=== PATIENT | male | born 1955 | race Caucasian/White ===

== ENCOUNTER 2023-02-28 11:22 | Day surgery (SDC) | payer OTHER ==
[~2023-02-28] VITALS: Ht 182.9 cm; Wt 87.4 kg
[~2023-02-28 11:22] MED LIST: ATEN25; CYCL10 PO; ENBREL25 MG/0.2; FISH1000; HYDSUL200 PO; METF500 PO; OXYC5; Propecia1 MG PO; TRAZ50 PO
--- NOTE | 2023-02-28 12:02 | NUR ---
02/28/23 1202 Thea Pires AT 1155 PLEDGET AT 1157
[2023-02-28] MEDS ORDERED: OXYC10TA19 PO (12:12)
--- NOTE | 2023-02-28 13:41 | NUR ---
02/28/23 1341 RAFA HEWITT PT TO BATHROOM PRIOR TO HIS DC
== END 2023-02-28 13:41 | disposition home or self-care (01) ==
LOC: ORSCSDS 11:22
PROVIDERS: Ophthalmology
PROC: 08DJ3ZZ Extraction of Right Lens, Percutaneous Approach (ICD-10-PCS; principal; 2023-02-28 12:30)
DX: H25.11 Age-related nuclear cataract, right eye (principal); I10 Essential (primary) hypertension; I25.2 Old myocardial infarction; I48.91 Unspecified atrial fibrillation; F17.210 Nicotine dependence, cigarettes, uncomplicated; Z79.02 Long term (current) use of antithrombotics/antiplatelets; Z79.84 Long term (current) use of oral hypoglycemic drugs; Z79.899 Other long term (current) drug therapy
CPT/HCPCS: J2001; J2250; J3010; J3301; J7040; V2632

== ENCOUNTER 2023-03-07 10:18 | Day surgery (SDC) | payer OTHER ==
[~2023-03-07] VITALS: Ht 182.9 cm; Wt 87.7 kg
[~2023-03-07 10:18] MED LIST changes: +OXYC10TA19 PO
--- NOTE | 2023-03-07 10:46 | NUR ---
03/07/23 1046 Sherry Birch 1036 TETRACAINE TO LEFT EYE 1038 PLEDGET TO LEFT EYE BY [email or web address]
[2023-03-07 12:35] VITALS: BP 143/108
--- NOTE | 2023-03-07 12:36 | NUR ---
03/07/23 1236 Augusto Ortiz PT ADVISED TO MONITOR BLOOD PRESSURE AT HOME AND FOLLOW UP WITH PCP REGARDING HYPERTENSION.
== END 2023-03-07 12:10 | disposition home or self-care (01) ==
LOC: ORSCSDS 10:18
PROVIDERS: Ophthalmology
PROC: 08DK3ZZ Extraction of Left Lens, Percutaneous Approach (ICD-10-PCS; principal; 2023-03-07 11:30)
DX: E11.36 Type 2 diabetes mellitus with diabetic cataract (principal); H25.12 Age-related nuclear cataract, left eye; Z96.1 Presence of intraocular lens; H04.123 Dry eye syndrome of bilateral lacrimal glands; I10 Essential (primary) hypertension; I25.2 Old myocardial infarction; F17.210 Nicotine dependence, cigarettes, uncomplicated; Z79.84 Long term (current) use of oral hypoglycemic drugs; Z79.899 Other long term (current) drug therapy
CPT/HCPCS: J2001; J2250; J3010; J3301; J7040; V2632

== ENCOUNTER → 2023-08-01 | Outpatient (CLI) | payer OTHER ==
[2023-08-01 16:53] LABS: BASOPHILS ABSOLUTE AUTO 0.09 K/mm3 (0.00-0.23); BASOPHILS PERCENT AUTO 1 % (0-2); EOSINOPHILS ABSOLUTE AUTO 0.54 K/mm3 (0.00-0.68); EOSINOPHILS PERCENT AUTO 8 % (0-6); Hematocrit 42.6 % (37.0-53.0); Hemoglobin 13.6 g/dL (13.5-17.5); IMMATURE GRAN ABSOLUTE AUTO 0.01 K/mm3 (0.00-0.10); IMMATURE GRAN PERCENT AUTO 0 % (0-1); LYMPHOCYTES ABSOLUTE AUTO 1.19 K/mm3 (0.84-5.20); LYMPHOCYTES PERCENT AUTO 17 % (21-46); MONOCYTES ABSOLUTE AUTO 0.62 K/mm3 (0.16-1.47); MONOCYTES PERCENT AUTO 9 % (4-13); Mean Corpuscular HGB 30.5 pg (26.0-34.0); Mean Corpuscular HGB Conc 31.9 g/dL (31.5-36.5); Mean Corpuscular Volume 96 fL (80-100); Mean Platelet Volume 10.4 fL (9.1-12.4); NEUTROPHILS ABSOLUTE AUTO 4.66 K/mm3 (1.96-9.15); NEUTROPHILS PERCENT AUTO 66 % (41-73); Platelet Count 251 K/mm3 (150-400); RDW Coefficient Variation 14.4 % (11.7-14.2); RDW Standard Deviation 50.7 fL (35.1-46.3); Red Blood Cell Count 4.46 M/mm3 (4.30-5.90); White Blood Cell Count 7.11 K/mm3 (4.00-11.30)
[2023-08-01 18:02] LABS: C-REACTIVE PROTEIN, EXT RANGE 0.308 mg/dL (0.000-0.300)
[2023-08-01 18:05] LABS: Albumin, Blood 3.6 g/dL (3.4-5.0); Bilirubin, Total 0.6 mg/dL (0.1-1.0); Bun/Creatinine Ratio 16.1 (12.0-20.0); Calcium, Blood 9.5 mg/dL (8.5-10.1); Creatinine, Blood 0.93 mg/dL (0.60-1.20); Globulin, Blood 3.6 g/dL (2.2-4.0); Potassium, Blood 4.7 mmol/L (3.5-5.5); Total Protein, Blood 7.2 g/dL (6.4-8.2)
== END | disposition home or self-care (01) ==
LOC: LAB 09:49 → LAB SHORT 09:49
PROVIDERS: Internal Medicine Rheumatology
DX: M06.9 Rheumatoid arthritis, unspecified (principal); I73.9 Peripheral vascular disease, unspecified
CPT/HCPCS: 80053; 85025; 85651; 86140

== ENCOUNTER 2024-08-27 07:11 | Day surgery (SDC) | payer OTHER ==
[~2024-08-27] VITALS: Ht 182.9 cm; Wt 84.5 kg
[~2024-08-27 07:11] MED LIST changes: +ACET325 PO; +ACYC400 PO; +BUPRENORPHINE HC2 MG; +CALCIPOTRIENE60 G3 TOP; +CILO100 PO; +CLOBETTC TOP; +CLOP75 PO; +CeFAZolin Sodium 2,000 MG in NS 100 ML IV SCH; +FURO40 PO; +GABA300 PO; +HYDCOR2.5C PR; +LIDO700A20 TOP; +Lactated Ringer's 1,000 ML IV SCH; +NARCAN4 M1; +NITR.4SL SL; +OXAYDO5 M1 PO; +TAMS.4ER PO; +Ventolin5 MG/1 ML INH; +XARELTO20 MG PO
[2024-08-27 07:34] VITALS: BP 169/99
[2024-08-27] MEDS ORDERED: Bupivacaine 0.5% Inj 50 ML Vial ONE (07:41)
--- NOTE | 2024-08-27 08:02 | NUR ---
Ambulatory in Day Surgery History, Chart, Medications and Allergies reviewed before start of procedure. Pre-Op teaching done. Pt verbalizes understanding. Patient States Post-Procedure ride home has been arranged.
[2024-08-27] MEDS ORDERED: Lidocaine HCl 1% 30 ML SDV ONE (08:09)
--- NOTE | 2024-08-27 08:18 | NUR ---
08/27/24 0818 Patrick Guillermo CASE DONE W/ LOCAL ANESTHESIA ONLY. VS MONITORED PER JULIA LION RN
[2024-08-27 09:30] VITALS: BP 139/108
--- NOTE | 2024-08-27 09:47 | NUR ---
Patient up to Ambulate independently. Gait steady. Discharge instructions reviewed with patient. Patient verbalizes understanding. Copy given to patient to take home. Patient States Post-Procedure ride home has been arranged. PT LOCAL ONLY, REPORTED WANTING TO WALK OUT. PT REPORTS READY TO GO HOME.
== END 2024-08-27 09:47 | disposition home or self-care (01) ==
LOC: ORSCMMR 07:11 → ORD 08:00 → ORSCMMR 08:00
PROVIDERS: Surgery
PROC: 0JBD0ZX Excision of Right Upper Arm Subcutaneous Tissue and Fascia, Open Approach, Diagnostic (ICD-10-PCS; principal; 2024-08-27 08:00)
PROC: 0JB70ZX Excision of Back Subcutaneous Tissue and Fascia, Open Approach, Diagnostic (ICD-10-PCS; principal; 2024-08-27 08:00)
PROC: 0JB40ZX Excision of Right Neck Subcutaneous Tissue and Fascia, Open Approach, Diagnostic (ICD-10-PCS; principal; 2024-08-27 08:00)
DX: L72.3 Sebaceous cyst (principal); I73.9 Peripheral vascular disease, unspecified; Z79.02 Long term (current) use of antithrombotics/antiplatelets; I48.0 Paroxysmal atrial fibrillation; Z79.01 Long term (current) use of anticoagulants; I10 Essential (primary) hypertension; E78.5 Hyperlipidemia, unspecified; F43.10 Post-traumatic stress disorder, unspecified; Z79.899 Other long term (current) drug therapy; F17.210 Nicotine dependence, cigarettes, uncomplicated
CPT/HCPCS: 88304; J0690; J7120